=== PATIENT | male | born 1935 | race Caucasian/White ===

== ENCOUNTER → 2016-08-02 15:18 | Outpatient (CLI) | payer MEDICARE, BC ==
[2015-06-26 07:36] VITALS: BMI 32.1
[~2016-08-02 15:18] MED LIST: ASPIRIN325 MG PO; BAYER CHEWABLE81 MG PO; BENADRYL25 MG PO; CALCIUM LACTATE; CO Q-1050 MG PO; COD LIVER OIL; COZAAR100 MG PO; DULCOLAX10 MG/SUPP RC; HYDROCHLOROTH12.5 M1 PO; HYZAAR 100-12.51 TAB PO; HYZAAR 100-25 T1 TAB PO; ISOSORBIDE MONO30 M1 PO; LOVENOX40 MG/0.4 SQ; PLAVIX75 MG PO; PROTONIX40 MG PO; SALINE FLUSH10 ML INJ; ZOCOR10 MG PO
== END | disposition home or self-care (01) ==
LOC: D.MRI 15:18
DX: R51 Headache (principal)

== ENCOUNTER 2016-08-20 08:46 | Inpatient (IN) | payer MEDICARE, BC ==
[2016-08-20] VITALS (13 sets, daily range): BP systolic 85–105; BP diastolic 43–63; BMI 32.1
[~2016-08-20] VITALS: Ht 180.3 cm; Wt 104.3 kg
--- NOTE | ~2016-08-20 | OP ---
PATIENT NAME: ZAHRAA NICOLE MEDICAL RECORD: [id number] :37 LOCATION:[facility] ADMISSION DATE:08/20/16 SURGEON: LAVERN CHAUDHRY MD DATE OF OPERATION: 08/26/2016 PROCEDURE: Fiberoptic bronchoscopy. INDICATION: Mr. Nicole is a 80-year-old gentleman who has a right upper lobe, right lower lobe pneumonia. Radiologically is not getting any better, also he has persistent leukocytosis. Fiberoptic bronchoscopy was carried out to obtain specimen for culture and sensitivity, AFB and fungus as well as to inspect the airway. MONITORING: EKG, pulse, and blood pressure were monitored throughout the procedure. MEDICATIONS: Versed 2 mg IV, fentanyl 100 mcg IV in divided doses. PROCEDURE IN DETAIL: The fiberoptic bronchoscope was easily passed through the mouth. The vocal cords were normal, moving equally on phonation. The epiglottis was normal. The main trachea was normal. No endobronchial lesion was seen. The jamel was sharp. The subsegment to the right upper lobe, right lower lobe within normal. There were severe bronchitic changes. No endobronchial lesion was seen. The left main bronchus subsegment to the left upper lobe lingula, left lower lobe within normal limits. There are also some bronchitic changes of the lower lobe. Specimen washing was obtained and sent for routine culture and sensitivity, and fungus. COMPLICATIONS: None. Overall, the patient tolerated the procedure very well. TRANSINT:[id number] Voice Confirmation ID: [id number] DOCUMENT ID: [id number] LAVERN CHAUDHRY MD CC: [id number] DICTATION DATE: 08/26/161654 TERMITE EXTERMINATOR: 08/26/16 2346 ADM IN [place] [id number] [place] [address]
[2016-08-20] MEDS ORDERED: ZITHROMAX TRI-500 MG PO (10:23)
[2016-08-20 11:44] LABS: BASOPHILS 0 % (0-2); EOSINOPHILS 0 % (0-7); HEMATOCRIT 42.7 % (42.0-54.0); HEMOGLOBIN 14.4 g/dL (13.5-17.5); IMMATURE GRANULOCYTES 0.4 % (0-5); LYMPHOCYTES 3.5 % (15-50); MCH 31.1 pg (26.0-34.0); MCHC 33.7 g/dL (31.0-37.0); MCV 92.2 fL (80.0-100.0); MEAN PLATELET VOLUME 9.9 fL (7.4-10.4); MONOCYTES 7.2 % (2-11); NEUTROPHILS 88.9 % (40-80); PLATELET COUNT 200 10x3/uL (130-400); RBC 4.63 10x6/uL (4.20-6.10); RDW 13.6 % (11.5-14.5); WBC 12.1 10x3/uL (4.8-10.8)
[2016-08-20 12:13] LABS: ALBUMIN 2.6 g/dL (3.4-5.0); BILIRUBIN - TOTAL 1.36 mg/dL (0.2-1.3); CALCIUM 9.2 mg/dL (8.5-10.1); CARBON DIOXIDE 27.7 mmol/L (21.0-32.0); POTASSIUM - SERUM 3.7 mmol/L (3.5-5.1)
[2016-08-20 17:39] LABS: POTASSIUM - URINE 79.8 MMOL/L (12.0-62.0); PROTEIN - URINE 136.4 mg/dL (0.0-11.9)
[2016-08-20 17:53] LABS: CREATININE - URINE 456.9 mg/dL (30-125); PRO/CRE RATIO URINE 0.3 mg/g
[2016-08-20 18:06] LABS: APPEARANCE HAZY (CLEAR); COLOR DK YELLOW (YELLOW)
[2016-08-20 18:07] LABS: LEUKOCYTE ESTERASE TRACE (NEGATIVE); NITRITE NEGATIVE (NEGATIVE); PROTEIN TRACE mg/dL (NEGATIVE)
[2016-08-20 18:14] LABS: BACTERIA FEW /hpf (NONE SEEN); BILIRUBIN NEGATIVE (NEGATIVE); GLUCOSE NEGATIVE (NEGATIVE); KETONE NEGATIVE (NEGATIVE); RED CELLS - URINE OCC /hpf (0-5); UROBILINOGEN NORMAL (NORMAL); WHITE CELLS - URINE 0-5 /hpf (0-5)
--- NOTE | 2016-08-20 19:09 | NUR ---
1030-RECIEVED PER ADMIT- BROUGHT TO [facility]-PT ABLE TO ANSWER MOST QUESTIONS-STATES KNOWS BETTER 1050-DR HOUSE AT [facility]-STRESSED OVERFLOW ADMIT-REMAINS OFF MONITOR-NOTED NIBP 88/68-AND POINTED OUT TO DR HOUSE-N/S STARTED AT 100ML/H- 1130-PT TO XRAY VIA WHEELCHAIR-O2 AT 4L SEPTIC TANK SETTER-DR VAN MADE AWARE OF CONSULT 1200- AT [facility] [place] AND ASSISTED WITH MEAL 1210- LEFT UNIT-TELEPHONE NUMBER TAKEN 1230-DR VAN AT [facility]-GIVEN WIFES PHONE NUMBER AND REQUESTED TO CALL REGARDING STATUS-NOTED ICU ADMIT AND PLACED TO MONITOR-NIBP 92/68-HOT TO TOUCH AND TEMP 98.8-SPOKE WITH REGARDING NEED FOR ADDITIONAL IV ACCESS AND TO REMAIN IN UNIT FOR ADDITIONAL MONITORING-CONSENT OBTAINED-FOR PICC LINE PLACEMENT-KBRN 1530-DR SUH AT [facility]-STATUS REPORT GIVEN AND SPOKE WITH VIA TELEPHONE 0170-ASSISTED TO [facility] COMMODE-
--- NOTE | 2016-08-20 19:30 | NUR ---
Assessment complete. See flowsheet. Pt awake with O2 cannula off and replaced. O2 @ 4L NC. SPO2 monitor placed on pt and reading 98%. Pt with strong, nonproductive cough at this time. Lung sounds present crackles to RUL RML and clear to LIAM with diminished lower lobes. HR SR with S1S2 auscultated. All peripheral pulses +2 with capillary refill <3 seconds. Left upper arm PICC line site CDI with NS infusing @ 100cc/hr. Abdomen soft, non-tender and non-distended with BS present to all quadrants. Urinal within pt reach. Pt self-positioning in bed for assessment and to left side after assessment for resting. NO neuro deficits noted. Pt moving all extremities equal and strong. Alert/oriented x4 and following all conversation. Pupils size 3 bilaterally ERRLA. Pt denies pain at this time. Temp 98.7F orally. Fresh ice water and extra pillow provided per pt request. Rapport established. Call light and beside table placed within pt reach. Pt denies further needs at this time. CPOC.
--- NOTE | 2016-08-20 21:30 | NUR ---
Pt awake and voiding to urinal 150cc concentrated, josue urine. Urinal emptied and cleansed. Pt remains calm/cooperative and conversational. VSS. Room cooled per request. NO other changes to note. CPOC.
--- NOTE | 2016-08-20 23:30 | NUR ---
Whitakers provided per pt request. VSS. Urinal emptied of 225cc concentrated, josue urine. Pt denies further needs and continues to self-position for comfort. Call light and bedside table remain within reach. CPOC.
[2016-08-21] VITALS (23 sets, daily range): BP systolic 84–128; BP diastolic 45–83; Ht 180.3 cm; Wt 104.3 kg
--- NOTE | 2016-08-21 01:30 | NUR ---
Pt self-positioned to right side and resting quietly with VSS. NO s/s pain or distress. Call light and bedside table remain within reach. CPOC.
--- NOTE | 2016-08-21 03:30 | NUR ---
300CC emptied from urinal. No changes to note. Pt denies further needs at this time. Call light and bedside table remain within reach. VSS. CPOC.
[2016-08-21 04:41] LABS: BASOPHILS 0.1 % (0-2); EOSINOPHILS 0.6 % (0-7); HEMATOCRIT 37.1 % (42.0-54.0); HEMOGLOBIN 12.3 g/dL (13.5-17.5); IMMATURE GRANULOCYTES 1.2 % (0-5); LYMPHOCYTES 4.6 % (15-50); MCH 30.4 pg (26.0-34.0); MCHC 33.2 g/dL (31.0-37.0); MCV 91.6 fL (80.0-100.0); MONOCYTES 7.7 % (2-11); NEUTROPHILS 85.8 % (40-80); PLATELET COUNT 184 10x3/uL (130-400); RBC 4.05 10x6/uL (4.20-6.10); RDW 13.5 % (11.5-14.5)
[2016-08-21 05:30] LABS: ALKALINE PHOSPHATASE 66 U/L (46-116); ALT (SGPT) 26 U/L (10-68); BILIRUBIN - TOTAL 0.77 mg/dL (0.2-1.3); CALC OSMOLALITY 286 mosm/kg (275-300); CALCIUM 7.7 mg/dL (8.5-10.1); CARBON DIOXIDE 25.4 mmol/L (21.0-32.0); CHLORIDE - SERUM 102 mmol/L (98-107); CREATINE KINASE 244 UL (21-232); GLUCOSE 125 mg/dL (74-106); MAGNESIUM - SERUM 1.7 mg/dL (1.8-2.4); PHOSPHOROUS 2.7 mg/dL (2.5-4.9); POTASSIUM - SERUM 3.4 mmol/L (3.5-5.1); PRO BNP 1119 pg/mL (0-450); PROTEIN - SERUM 5.8 g/dL (6.4-8.2); SODIUM 136 mmol/L (136-145); UREA NITROGEN 53 mg/dL (7-18)
--- NOTE | 2016-08-21 05:30 | NUR ---
Pt resting with VSS
[2016-08-21 05:34] LABS: ALBUMIN 1.9 g/dL (3.4-5.0); CREATININE - SERUM 2.1 mg/dL (0.6-1.3); TROPONIN-I < 0.017 ng/mL (0.000-0.060); eGFR NON AFRICAN AMERICAN 32 mL/min (90-120)
[2016-08-21 05:35] LABS: CKMB 3.8 U/L (0.0-3.6)
--- NOTE | 2016-08-21 06:09 | NUR ---
Pt awake and urinal emptied of 300cc concentrated, josue urine. Pt c/o pain to right side with coughing rated 4 out of 10. Pain medication provided per pt request. See MAR. Fresh ice water provided. Pt helped to reposition for comfort. Call light and bedside table within pt reach. VSS. CPOC.
--- NOTE | 2016-08-21 17:48 | NUR ---
0700-RECIEVED AWAKE AND ALERT-READING NEWSPAPER-ABLE TO CONVERSE EASILY AND STATES FEELING BETTER-ABLE TO STATED FAMILY EVENTS AND EVENTS THAT BROUGHT TO HOSPITAL-PRODUCTIVE COUGH-COOPERATIVE IN INCENTIVE SPIROMETRY 0930-BREAKFEST TRAY TAKEN-DR HOUSE IN UNIT AND SPOKE WITH 1000-DR VAN IN UNIT-PT ABLE TO ANSWER QUESTIONS CORRECTLY 1430-FOUND OXYGEN OFF PT [id number] INCREASED CONFUSION-STATED HALLUCINATIONS-REPLACED O2- AND TAPED TUBING TO SKIN TO PREVENT ACCIDENTAL DISLODGEMENT-PT STATED DIDN'T REALIZE HE TOOK OFF-ENCOURAGED [id number] AND DAUGHTER AT BEDSDIE-AGITATION NOTED FROM PT-O2 IN PLACE-ABLE TO CONVERSE AND STATE FAMILY CURRENT EVENTS-ABLE TO STATE NURSE'S NAME PART OF CONVERSATION-STATED BURNING SENSATION ON TOP OF HEAD-NO SKIN OR SCALP ABNORMALITIES NOTED 1650-PT CALLED NURSE -CRYING STATED-THESE HALLUCINATIONS ARE TERRIBLE WHEN I CLOSE MY EYES-NOTIFIED DR HOUSE OF SAME AND BURNING SCALP SENSATION-ORDER RECIEVD FOR PO HALDOL AND POSSIBLE ICU PSYCHOSIS - CALLED AND NOTIFIED OF SITUATION -AGREED TO SIT WITH PT-AND INFORMED OF TREATMENT PLAN
--- NOTE | 2016-08-21 19:30 | NUR ---
Pt awake with leaving bedside for night. Pt gown wet and pt self-positioned to left side and c/o discomfort. Pt helped to sit at bedside. Gown removed. Bed bath with gown change completed. Pt respirations unlabored. VSS. Pt helped to feet to ambulate around unit x2 circles and tolerated well after linen change. Powder applied to armpits and back per request after returning to room. Pt helped to bedside toilet to pass gas; no stool with 100cc concentrated urine produced to bedside toilet and urinal emptied of 300cc concentrated, yellow urine. Pt back to bed after self pericare and toileting. Pt positioned for comfort with arms and heels bridged. SCDs off for now per pt request for break. New BP cuff positioned to right arm. Pt alert, oriented x4 and denies confusion. Pt following all conversation and commands with no neuro deficits noted. 4/5 strength to all extremities with no edema noted. O2 @ 4L NC. SPO2 96%. Lung sounds clear to LIAM with rattle noted to RUL RML RLL and diminished lower lobes. Pt cough productive with thick, brown sputum noted. HR SR with S1S2 auscultated. All peripheral pulses +2 with capillary refill <3 seconds. Left upper arm PICC line site CDI with NS infusing @ 100cc/hr. BS present to all quadrants. Pt coughing with sips of water. [place] thickened water provided. Enzo crackers and peanut butter with chocolate pudding and vanilla ice cream provided for snack. Pt denies pain at this time. Temp 98.6F orally before oral intake. Pt denies further needs at this time. Call light and bedside table placed within pt reach. CPOC.
--- NOTE | 2016-08-21 21:01 | NUR ---
Pt helped back to bedside toilet for BM attempt. PM meds provided. See MAR.
--- NOTE | 2016-08-21 21:30 | NUR ---
IVF rate increased to 150ml/hr per order. See MAR.
--- NOTE | 2016-08-21 23:30 | NUR ---
Reassessment complete. See flowsheet. Pt helped to position to right side with minimal assistance. NO neuro changes to note. O2 @ 4L NC. SPO2 96%. Lung sounds present crackles to all landry with diminished lower lobes. Pt cough strong and productive with thick, barker sputum produced. HR SR. S1S2 auscultated. All peripheral pulses +2 with capillary refill <3 seconds. PICC line site CDI; no s/s infection with NS infusing @ 150cc/hr. BS +. Urinal emptied of 200cc concentrated, yellow urine. Pt denies pain or further needs at this time. Call light and bedside table remain within pt reach. CPOC.
[2016-08-22] VITALS (24 sets, daily range): BP systolic 96–172; BP diastolic 48–104
--- NOTE | 2016-08-22 00:26 | NUR ---
Pt helped to bedside toilet for BM attempt with no stool produced. Pt helped back to bed to position to right side for comfort. Call light and bedside table within pt reach. Pt denies further needs at this time. CPOC.
--- NOTE | 2016-08-22 01:30 | NUR ---
Pt awake and coughing. Pt provided with fresh ice water per request and self-positions to left side.
--- NOTE | 2016-08-22 02:05 | NUR ---
Pt helped up to bedside toilet per request.
--- NOTE | 2016-08-22 03:30 | NUR ---
Pt helped up to bedside toilet for void and soft, brown BM approx 400cc. Pericare self-completed. NO other changes to note. Pt ambulates with minimal assistance back to bed and self-positions to left side for comfort. Call light and bedside table within pt reach.
[2016-08-22 03:45] LABS: BASOPHILS 0.1 % (0-2); EOSINOPHILS 0.2 % (0-7); HEMATOCRIT 36.8 % (42.0-54.0); HEMOGLOBIN 12.4 g/dL (13.5-17.5); IMMATURE GRANULOCYTES 2.3 % (0-5); LYMPHOCYTES 2.8 % (15-50); MCH 30.5 pg (26.0-34.0); MCHC 33.7 g/dL (31.0-37.0); MCV 90.6 fL (80.0-100.0); MEAN PLATELET VOLUME 9.7 fL (7.4-10.4); MONOCYTES 8.4 % (2-11); NEUTROPHILS 86.2 % (40-80); PLATELET COUNT 177 10x3/uL (130-400); RBC 4.06 10x6/uL (4.20-6.10); RDW 13.5 % (11.5-14.5); WBC 16.4 10x3/uL (4.8-10.8)
[2016-08-22 04:16] LABS: ALBUMIN 1.9 g/dL (3.4-5.0); ANION GAP 11.7 mmol/L (8-16); BILIRUBIN - TOTAL 0.6 mg/dL (0.2-1.3); CARBON DIOXIDE 24.8 mmol/L (21.0-32.0); PHOSPHOROUS 2.2 mg/dL (2.5-4.9); POTASSIUM - SERUM 3.5 mmol/L (3.5-5.1)
--- NOTE | 2016-08-22 04:16 | NUR ---
Pt back to bedside toilet per request.
[2016-08-22 04:17] LABS: CREATININE - SERUM 1.5 mg/dL (0.6-1.3)
[2016-08-22 04:26] LABS: % SATURATION 12 % (15-55); IRON 18 ug/dl (35-150); TOTAL IRON BIND CAPACITY 140 ug/dl (260-445); UNSAT IRON BIND CAPACITY 122 ug/dl (150-375)
--- NOTE | 2016-08-22 04:29 | NUR ---
Small void, no stool. Pt helped to bedside chair to rest and helped to position for comfort.
[2016-08-22 04:34] LABS: C-REACTIVE PROTEIN 29.3 mg/dL (0.0-0.9)
--- NOTE | 2016-08-22 05:05 | NUR ---
Pt helped to bedside toilet.
--- NOTE | 2016-08-22 06:27 | NUR ---
Pt provided with fresh water and urinal emptied of 250cc yellow, concentrated urine. Pt remains up to bedside chair. VSS. Pain denied.
--- NOTE | 2016-08-22 18:28 | NUR ---
CONSULT CALLED TO DR MCKENZIE-VIMAL RECIVED AND NOTED
--- NOTE | 2016-08-22 19:40 | NUR ---
Assessment complete. See flowsheet. Pt awake and helped to bedside chair with minimal assistance. No neuro deficits noted. Pt states that he is feeling better than last night. O2 @ 4L NC. SPO2 96%. Lung sounds present fine crackles to all landry. Cough strong and non-productive at this time. HR SR with S1S2 auscultated. All peripheral pulses +2 with capillary refill <3 seconds. Left upper arm PICC line site CDI no s/s infection with NS @ 150cc/hr. Abdomen distended and dull to percussion with BS present to all quadrants. Pt urinal emptied of 100cc concentrated, yellow urine. Pt sitting up in bedside chair and comfortable with fresh ice water provided. Pt denies further needs at this time. VSS. Call light and bedside table placed within pt reach. Temp 98.2F. CPOC.
--- NOTE | 2016-08-22 23:00 | NUR ---
Pt awake and voiding into trash can. Pt confused and helped back to bed. O2 replaced. IV tubings resecured and BP cuff resecured. Pt helped to reposition to left side. Bed alarm on
--- NOTE | 2016-08-22 23:11 | NUR ---
Pt attempting to get OOB again and helped to relax
--- NOTE | 2016-08-22 23:24 | NUR ---
Pt oriented to person only and confused. Haldol 5mg PO administered for hallucinations.
[2016-08-23] VITALS (13 sets, daily range): BP systolic 106–161; BP diastolic 53–96
--- NOTE | 2016-08-23 01:40 | NUR ---
Pt getting OOB and helped to bedside chair after void 175cc. Pt helped to position for comfort.
--- NOTE | 2016-08-23 03:40 | NUR ---
Pt resting in bedside chair with VSS> NO s/s pain or distress and allowed to continue resting undisturbed. CXR deferred to later this AM. Call light and bedside table remain within pt reach. CPOC.
--- NOTE | 2016-08-23 04:20 | NUR ---
Pt awake and watching telvision with VSS. Pt states that he feels better and is currently oriented x4.
[2016-08-23 04:28] LABS: BASOPHILS 0.1 % (0-2); EOSINOPHILS 0.8 % (0-7); HEMATOCRIT 37.5 % (42.0-54.0); HEMOGLOBIN 12.7 g/dL (13.5-17.5); IMMATURE GRANULOCYTES 2.3 % (0-5); LYMPHOCYTES 9.8 % (15-50); MCH 30.6 pg (26.0-34.0); MCHC 33.9 g/dL (31.0-37.0); MCV 90.4 fL (80.0-100.0); MEAN PLATELET VOLUME 9.8 fL (7.4-10.4); MONOCYTES 5.7 % (2-11); NEUTROPHILS 81.3 % (40-80); PLATELET COUNT 188 10x3/uL (130-400); RBC 4.15 10x6/uL (4.20-6.10); RDW 13.5 % (11.5-14.5)
[2016-08-23 04:39] LABS: ANION GAP 11.2 mmol/L (8-16); CALCIUM 8.1 mg/dL (8.5-10.1); CARBON DIOXIDE 26.6 mmol/L (21.0-32.0); CREATININE - SERUM 1.2 mg/dL (0.6-1.3); MAGNESIUM - SERUM 2.2 mg/dL (1.8-2.4); PHOSPHOROUS 2.1 mg/dL (2.5-4.9); POTASSIUM - SERUM 3.8 mmol/L (3.5-5.1)
--- NOTE | 2016-08-23 05:21 | NUR ---
Pt resting in chair with VSS. Call light and bedside table remain within pt reach. CPOC.
--- NOTE | 2016-08-23 07:00 | NUR ---
PT AAOX4. DENIES PAIN AT THIS TIME. STATES THAT HE IS FEELING MUCH BETTER TODAY. VITAL SIGNS STABLE. SHIFT ASSESSMENT COMPLETED PER FLOWSHEET. NO SIGNS OF DISTRESS NOTED AT THIS TIME. WILL CONTINUE TO MONTIOR
--- NOTE | 2016-08-23 09:00 | NUR ---
PT SITTING UP IN CHAIR EATING BREAKFAST INDEPENDENTLY. NO CHANGES FROM PREVIOUS NOTE. WILL CONTINUE TO MONITOR
--- NOTE | 2016-08-23 11:00 | NUR ---
HELPED PT BACK TO BED. ABLE TO AMBULATE WITH MINIMAL ASSISTANCE. WEAKNESS AND SOB NOTED UPON STANDING. VITAL SIGNS STABLE. WILL CONTINUE TO MONITOR
--- NOTE | 2016-08-23 11:05 | NUR ---
Nutrition Follow Up: Pt is eating 53% meal avg on a regular diet. He is receiving Ensure with meals. I>O. +BM 08/22/16. Wt stable. Labs reviewed. Meds noted. Rec continue current diet. If glucose continues elevated may need to change diet to diabetic. RD will continue to monitor pt progress.
--- NOTE | 2016-08-23 13:00 | NUR ---
TRANSFER ORDERS IN ON PT. WILL CONTINUE TO MONITOR FOR CHANGE IN STATUS. VITAL SIGNS STABLE.
--- NOTE | 2016-08-23 17:15 | NUR ---
PT TRANSFER TO MED/SURG VIA WHEELCHAIR WITH BELONGINGS. ON 4L NC AND BREATHING STABLE. REPORT CALLED TO [facility]. PT SET UP IN BED WITH CALL LIGHT WITHIN REACH.
[2016-08-24] VITALS: BP 159/79
--- NOTE | 2016-08-24 00:10 | NUR ---
193)REC'D SITTING ON SIDE OF BED.'STATES FEELS LIKE I HAVE A FEVER TEMP. 99.9.TYLENOL 650MG GIVEN PER PT. REQUEST. 02 4L AL.WILL CONTINUE TO MONITOR FOR ANY CHGES. IN RESP. STATUS AND FOLLOW CURRENT PLAN OF CARE.
[2016-08-24 04:00] VITALS: BP 143/73
[2016-08-24 06:44] LABS: ANION GAP 10.7 mmol/L (8-16); CALCIUM 7.8 mg/dL (8.5-10.1); CARBON DIOXIDE 25.9 mmol/L (21.0-32.0); CREATININE - SERUM 1.1 mg/dL (0.6-1.3); PHOSPHOROUS 1.9 mg/dL (2.5-4.9); POTASSIUM - SERUM 3.6 mmol/L (3.5-5.1)
[2016-08-24 08:16] VITALS: BP 169/81
[2016-08-24 08:19] LABS: BASOPHILS 0.2 % (0-2); HEMATOCRIT 34.9 % (42.0-54.0); HEMOGLOBIN 11.7 g/dL (13.5-17.5); IMMATURE GRANULOCYTES 4.6 % (0-5); LYMPHOCYTES 4.8 % (15-50); MCH 30.4 pg (26.0-34.0); MCHC 33.5 g/dL (31.0-37.0); MCV 90.6 fL (80.0-100.0); MEAN PLATELET VOLUME 10.3 fL (7.4-10.4); MONOCYTES 11.6 % (2-11); NEUTROPHILS 77.8 % (40-80); PLATELET COUNT 199 10x3/uL (130-400); RBC 3.85 10x6/uL (4.20-6.10); RDW 13.9 % (11.5-14.5); WBC 13.2 10x3/uL (4.8-10.8)
[2016-08-24 11:48] VITALS: BP 128/62
--- NOTE | 2016-08-24 12:56 | NUR ---
Patient Name: ZAHRAA HERNANDEZ Admission Status: Elective Accout number: [id number] Admission Date: 08-20-2016 : 1937 Admission Diagnosis: Attending: HARSH Current LOS: 4 Anticipated DC Date: 08-27-2016 Planned Disposition: Home with Home Health Primary Insurance: MEDICARE A & B Discharge Planning Comments: CM MET WITH PATIENT REGARDING DISCHARGE NEEDS AND PLANS. PATIENT STATED HE LIVES WITH HIS SPOUSE (QI) AND SHE WILL DRIVE HIM HOME AT DISCHARGE. PATIENT STATED HE IS INDEPENDENT WITH HIS CARE AND HAS A WALKER AT HOME IF NEEDED. PATIENTS PCP IS DR. VELÁSQUEZ AND [facility] [address] [facility] HER [address]AC[address]. PATIENT HAS SIGNED THE LAYLA FORM WITH [employer] IF NEEDED AT DISCHARGE. CM WILL CONTINUE TO FOLLOW PATIENT WITH D/C NEEDS AND PLANS. [facility] DR[facility]. [address] [phone] QI () [phone] Field Identification Specialist: Roxana Dumas Is the patient Alert and Oriented? Yes 0 * How many steps to enter\exit or inside your home? 0 0 * PCP DR. VELÁSQUEZ 0 * [facility] [address] 0 * Preadmission Environment Home with Family 0 * ADLs Independent 0 * Equipment Walker 0 * List name and contact numbers for known caregivers / representatives who currently or will assist patient after discharge: QI () [phone] 0 * Community resources currently utilized None 0 * Additional services required to return to the preadmission environment? Yes 0 * Can the patient safely return to the preadmission environment? Yes 0 * Has this patient been hospitalized within the prior 30 days at any hospital? No 0 Grand Total: 0
--- NOTE | 2016-08-24 14:41 | NUR ---
NUTRITION MONITORING & EVAL CHART REVIEWED, PT VISIT. TOLERATING REG DIET. ~50% INTAKE RECENT MEALS. WILL CONTINUE TO PROVIDE DIET, HONOR FOOD PREFERENCES. RD FOLLOWING
[2016-08-24 15:20] VITALS: BP 162/83
[2016-08-24 19:00] VITALS: BP 127/57
--- NOTE | 2016-08-25 02:00 | NUR ---
PT IN BED WITH NO DISTRESS. RESPIRATIONS ARE EVEN AND UNLABORED. SIDE RAILS ARE UP X 2. BED IS IN LOWEST POSITION. CALL LIGHT IS WITHIN REACH.
[2016-08-25 04:00] VITALS: BP 138/54
[2016-08-25 04:36] LABS: ANION GAP 9.6 mmol/L (8-16); CALCIUM 7.7 mg/dL (8.5-10.1); CARBON DIOXIDE 26.3 mmol/L (21.0-32.0); CREATININE - SERUM 1.1 mg/dL (0.6-1.3); POTASSIUM - SERUM 3.9 mmol/L (3.5-5.1)
[2016-08-25 04:37] LABS: PHOSPHOROUS 2.4 mg/dL (2.5-4.9)
[2016-08-25 05:26] LABS: BASOPHILS 0.2 % (0-2); EOSINOPHILS 3.4 % (0-7); HEMATOCRIT 38.6 % (42.0-54.0); HEMOGLOBIN 13.2 g/dL (13.5-17.5); LYMPHOCYTES 8.8 % (15-50); MCH 30.8 pg (26.0-34.0); MCHC 34.2 g/dL (31.0-37.0); MEAN PLATELET VOLUME 9.6 fL (7.4-10.4); MONOCYTES 5.1 % (2-11); NEUTROPHILS 76.5 % (40-80); RBC 4.29 10x6/uL (4.20-6.10); RDW 13.8 % (11.5-14.5); WBC 16.1 10x3/uL (4.8-10.8)
[2016-08-25 05:35] LABS: PLATELET COUNT 246 10x3/uL (130-400)
[2016-08-25 07:55] VITALS: BP 171/85
--- NOTE | 2016-08-25 07:57 | NUR ---
AWAKE AND ALERT. ORIENTED X3. NO C/O AT THIS TIEM. LUNGS HAVE WHEEZES THROUGHOUT LUNG SHAY, DENIES PRODUCTIVE COUGH. SKIN IS INTACT WITHOUT REDNESS. PICC TO LEFT UPPER ARM IS PATENT WITHOUT REDNESS AT INSERTION SITE. DENIES NEEDS.
--- NOTE | 2016-08-25 10:23 | NUR ---
UP TO BR WITH 'S ASSISTANCE. VOIDED CLEAR YELLLOW URINE WITHOUT DIFFICULTY. REPOSITIONED IN BED FOR COMFORT.
[2016-08-25 11:17] VITALS: BP 124/60
--- NOTE | 2016-08-25 12:37 | NUR ---
NASAL SWAB COMPLETED AND URINE COLLECTED AND SENT TO LAB.
[2016-08-25 14:55] VITALS: BP 122/62
--- NOTE | 2016-08-25 16:30 | NUR ---
DRESSING TO LEFT PICC CHANGED USING STERILE TECHNIQUE. PATIENT TOLERATED WITHOUT C/O PAIN OR DISCOMFORT.
--- NOTE | 2016-08-25 18:24 | NUR ---
REFUSED SUPPER TRAY. DENIES NEEDS. NO CHANGES NOTED.
[2016-08-25 19:00] VITALS: BP 142/79
--- NOTE | 2016-08-25 22:41 | NUR ---
REC'D PATIENT LYING IN BED DOING A BREATHING TREATMENT. ALERT AND ORIENTED X4. DENIED PAIN AT THIS TIME. WILL ADMINISTER PM MEDS PRESCIRBED. WHEN I WENT TO ADMINISTER MEDS THE SCANNER IN HIS ROOM WAS NOT WORKING SO I HAD TO PUT THE MEDS IN MANUALLY. WILL CONT TO TRY THROUGHOUT THE NIGHT AND WILL REPORT THAT IN THE MORNING. INSTRUCTED TO CALL IF NEEDED ANYTHING. VERBALIZED UNDERSTANDING. BED LOW, LOCKED, CALL LIGHT IN REACH.
[2016-08-26] VITALS (15 sets, daily range): BP systolic 116–164; BP diastolic 61–78
--- NOTE | 2016-08-26 02:46 | NUR ---
PATIENT RESTING IN BED WITH EYES CLOSED AND NO VISIBLE SIGNS OF DISTRESS. BED IN LOWEST POSITION AND CALL LIGHT WITHIN REACH.
[2016-08-26 05:40] LABS: BASOPHILS 0.2 % (0-2); HEMATOCRIT 36.7 % (42.0-54.0); HEMOGLOBIN 12.2 g/dL (13.5-17.5); IMMATURE GRANULOCYTES 5.4 % (0-5); LYMPHOCYTES 4.4 % (15-50); MCH 30.2 pg (26.0-34.0); MCHC 33.2 g/dL (31.0-37.0); MCV 90.8 fL (80.0-100.0); MEAN PLATELET VOLUME 9.8 fL (7.4-10.4); MONOCYTES 9.1 % (2-11); NEUTROPHILS 73.9 % (40-80); PLATELET COUNT 276 10x3/uL (130-400); RBC 4.04 10x6/uL (4.20-6.10); RDW 14.1 % (11.5-14.5); WBC 14.6 10x3/uL (4.8-10.8)
[2016-08-26 05:49] LABS: CALC OSMOLALITY 279 mosm/kg (275-300); CALCIUM 7.8 mg/dL (8.5-10.1); CARBON DIOXIDE 25.8 mmol/L (21.0-32.0); CHLORIDE - SERUM 107 mmol/L (98-107); GLUCOSE 114 mg/dL (74-106); MAGNESIUM - SERUM 1.7 mg/dL (1.8-2.4); PHOSPHOROUS 2.2 mg/dL (2.5-4.9); POTASSIUM - SERUM 3.6 mmol/L (3.5-5.1); SODIUM 140 mmol/L (136-145); UREA NITROGEN 12 mg/dL (7-18); eGFR NON AFRICAN AMERICAN 77 mL/min (90-120)
--- NOTE | 2016-08-26 07:46 | NUR ---
AWAKE AND ALERT. ASSISTED UP TO BR WITH MIN ASSIST OF ONE. HAD GOOD BM. SKIN CARE PER SELF. LUNGS ARE DIMINISHED THROUGHOUT LUNG SHAY WITH FAINT CRACKLES NOTED TO RIGHT LOBES. OCCASSIONAL DRY COUGH NOTED. SKIN IS INTACT WITHOUT REDNESS. PICC TO LEFT UPPER ARM IS PATENT WITHOUT REDNESS AT INSERTION SITE. DENIES NEEDS.
--- NOTE | 2016-08-26 10:14 | NUR ---
DR CHAUDHRY CALLED AND SAID TO MAKE PATIENT NPO FOR NOW. DISCUSSED WITH PATIENT AND .
--- NOTE | 2016-08-26 12:00 | NUR ---
UP TO BR WITH ONE PERSON SBA. HAD SMALL BM. REPOSITIONED IN BED FOR COMFORT.
--- NOTE | 2016-08-26 16:00 | NUR ---
PT PREOPPED FOR BRONCHOSCOPY WITH DR CHAUDHRY AT TH IS TIME CALL PLACED TO DR CHAUDHRY PT STATES HALLUCINOGENIC REACTION TO MORPHINE HELD PER ORDER DR CHAUDHRY NOT GIVEN FOR PREOP MED.
--- NOTE | 2016-08-26 17:25 | NUR ---
REC'D TO ROOM CV07 FROM 2237 ON 15L NONREBREATHER. SATTING 95%. RR 29 EVEN AND LABORED. HR 87. BP 164/76. LATHARGIC BUT DOES ANSWER QUESTIONS APPROPRIATLY. A&O X3. LEFT UPPER ARM PICC LINE. PPP. CHRISTIE. FOLLOWS COMMANDS. LUNGS CTA. BS +X4 QUADS.SEE FLOW SHEET FOR ADDITIONAL ASSESSMENT.
--- NOTE | 2016-08-26 17:35 | NUR ---
ALLOWED BACK TO SEE MR. HERNANDEZ.
--- NOTE | 2016-08-26 17:45 | NUR ---
NOTIFIED AT THIS TIME PT TO CVICU AFTER BRONCHOSCOPY PT WAS UNABLE TO MAINTAIN O2 SAT AFTER PROCEEDURE
--- NOTE | 2016-08-26 17:52 | NUR ---
BP 143/75. HR 80 NS.
--- NOTE | 2016-08-26 17:54 | NUR ---
IVF STARTED BACK AT [facility].
--- NOTE | 2016-08-26 18:14 | NUR ---
RESTING WITH EYES CLOSED. RESPONSE TO VERBAL STIMULI. RR 22, EVEN AND LESS LABORED. REMIANS ON 15L NONREBREATHER. SATTING 95%. DROWSY BUT ORIENTED X3.VSS. CPOC.CLWR.
--- NOTE | 2016-08-26 18:43 | NUR ---
REPOSITIONED FOR COMFORT AND TO PRESERVE SKIN INTEGRITY. TURNED ON LEFT SIDE. PLACED PILLOW BEHIND HIM AND BETWEEN LEGS.
--- NOTE | 2016-08-26 19:10 | NUR ---
SHIFT ASSESSMENT COMPLETE, SEE FOR DETIALS. PATIENT ALERT AND ORIENTED, ON NON-REBREATHER AT 15L. O2 SAT IS 96%, RR EVEN AND LABORED WIT A RATE OF 36. DENIES ANY PAIN AT THIS TIME. LUNG SOUNDS ARE DIMINISHED BUT CLEAR. ABDOMEN OBESE AND SOFT, NONTENDER TO TOUCH. PATIENT URINATES IN BEDSIDE URINAL. PERIPHERAL PULSES +2, BILATERAL. WILL CONTINUE TO MONITOR.
--- NOTE | 2016-08-26 20:15 | NUR ---
DR CHAUDHRY PAGEWilliam FOR LABORED BREATHING AND TACHYAPNEA. ORDERS RECEIVED, WILL MONITOR. PLACED ON 15L OXYMIZER PER RT.
--- NOTE | 2016-08-26 20:30 | NUR ---
RESPERATIONS ARE SLOWER AND NOT IS LABORED. PATIENT STATES FEELING BETTER NOW. WILL MONITOR PATIENT.
--- NOTE | 2016-08-26 21:15 | NUR ---
PATIENT RESTING WITH EYES CLOSED, RR 21 AT THIS TIME WITH O2 GREATER THAN 92%.
--- NOTE | 2016-08-26 23:10 | NUR ---
REASSESSMENT COMPLETE, PATIENT RESTING WITH EYES CLOSED UPON ENTERING THE ROOM. VSS. RR EVEN, PATIENT STILL HAVING SOME SHORTNESS OF BREATH, BUT MUCH BETTER. DENIES PAIN OR DISCOMFORT. S1S2 WITH NSR ON MONITOR. PERIPHERAL PULSES +2, NS GOING @ KVO TO GIACOMO PICC LINE. SEE REASSESSMENT FLOWSHEET FOR MORE DETAILS.
[2016-08-27] VITALS (26 sets, daily range): BP systolic 125–166; BP diastolic 54–88
--- NOTE | 2016-08-27 | NUR ---
PATIENT PLACED ON BEDPAN, HAD SMALL FORMED BM. PATIENT WAS SOB AND A LITTLE TACHYCARDIC DUE TO ACTIVITY INTOLERANCE, OTHERWISE TOLERATED WELL. VSS.
--- NOTE | 2016-08-27 01:00 | NUR ---
PATIENT RESTING WITH EYES CLOSED, VSS.
--- NOTE | 2016-08-27 03:00 | NUR ---
REASSESSMENT COMPLETE, SEE FLOWSHEET FOR DETAILS. RR HAVE CALMED AND SOB HAS DECREASED THROUGHOUT THE NIGHT. PATIENT STATES FEELIMG MUCH BETTER.
--- NOTE | 2016-08-27 05:15 | NUR ---
PATIENT UP TO BEDSIDE COMMODE, HAD MEDIUM SOFT BOWEL MOVEMENT. TOLERATED GETTING UP AND DOWN OKAY. BECAME SHORT OF BREATH BUT REGAINED IT AFTER RESTING FOR A MINUTE. VSS.
[2016-08-27 05:19] LABS: BASOPHILS 0.1 % (0-2); EOSINOPHILS 2.7 % (0-7); HEMATOCRIT 35.8 % (42.0-54.0); HEMOGLOBIN 11.9 g/dL (13.5-17.5); IMMATURE GRANULOCYTES 1.4 % (0-5); LYMPHOCYTES 2.8 % (15-50); MCH 30.5 pg (26.0-34.0); MCHC 33.2 g/dL (31.0-37.0); MCV 91.8 fL (80.0-100.0); MEAN PLATELET VOLUME 9.5 fL (7.4-10.4); MONOCYTES 4.9 % (2-11); NEUTROPHILS 88.1 % (40-80); PLATELET COUNT 264 10x3/uL (130-400); RDW 14.5 % (11.5-14.5); WBC 21.2 10x3/uL (4.8-10.8)
[2016-08-27 05:27] LABS: CALC OSMOLALITY 279 mosm/kg (275-300); CALCIUM 7.7 mg/dL (8.5-10.1); CARBON DIOXIDE 29.3 mmol/L (21.0-32.0); CHLORIDE - SERUM 106 mmol/L (98-107); GLUCOSE 140 mg/dL (74-106); MAGNESIUM - SERUM 1.6 mg/dL (1.8-2.4); PHOSPHOROUS 2.4 mg/dL (2.5-4.9); POTASSIUM - SERUM 3.6 mmol/L (3.5-5.1); SODIUM 140 mmol/L (136-145); UREA NITROGEN 11 mg/dL (7-18); eGFR NON AFRICAN AMERICAN 77 mL/min (90-120)
--- NOTE | 2016-08-27 07:15 | NUR ---
REC'D REPORT AND RESUMED CARE, AAO, VSS, O2 VIA OXYMIZER AT 9L, SAT 96%, OTHER VSS, DENIES PAIN, SITTING UP AT BEDSIDE, DYSPNEA NOTED FROM GETTING UP LEFT UPPER ARM PICC IN PLACE, NS AT KVO, URINAL IN USE, 105 CC, DARK YELLOW DRAINAGE, SCD'S B/L, ASSESSMENT COMPLETE PER FLOWSHEET, TRANSFERRED TO CHAIR WITHOUT DIFFICULTY, WILL CONTINUE WITH POC
--- NOTE | 2016-08-27 07:50 | NUR ---
BREAKFAST TRAY TO BEDSIDE, OOB TO CHAIR WITH ASSIST, INDEPENDENT WITH SET UP AND EATING
--- NOTE | 2016-08-27 09:00 | NUR ---
AT BEDSIDE, STATUS UPDATED., AWAITNG TO SPEAK WITH 'S RE: POC
--- NOTE | 2016-08-27 10:05 | NUR ---
OUT OF CHAIR TO BEDSIDE COMMOODE, DYSPNEA ON EXERTION
--- NOTE | 2016-08-27 10:19 | NUR ---
DR CHAUDHRY HERE FOR EVAL, NEW ORDER GIVEN, PC TO QI, DISCUSSED STATUS AND POC
--- NOTE | 2016-08-27 10:20 | NUR ---
NUTRIITON MONITORING & EVAL CHART REVIEWED. NURSING REPORTS PT WITH GOOD PO INTAKE BREAKFAST. ENSURE AT BEDSIDE. RD FOLLOWING
--- NOTE | 2016-08-27 10:43 | NUR ---
RT AT BEDSIDE FOR UPDRAFT AND TX
--- NOTE | 2016-08-27 11:01 | NUR ---
CONTINUES TO SIT UP IN CHAIR, VSS, STATES FEELS BETTER, NO ACUTE CHANGE FROM PREVIOUS ASSESSMENT
[2016-08-27 11:48] LABS: ERYTHROCYTE SEDIMENTATION RATE 55 mm/hr (0-20)
--- NOTE | 2016-08-27 12:05 | NUR ---
LINEN CHANGE COMPLETED, PATIENT CONTNIUES TO SIT UP IN CHAIR, SLEEPING AROUSABLE TO VERBAL STIMULI, DENIES PAIN, NO ACUTE CHANGE FROM PREVIOUS ASSESSMENT
--- NOTE | 2016-08-27 13:00 | NUR ---
BTB WITH ASSIST, REPOSITIONED TO LEFT SIDE WITH PILLOW PROPPED TO BACK AND HEELS FLOATED
--- NOTE | 2016-08-27 13:52 | NUR ---
OOB TO BEDSIDE COMMODE WITH STANDBY ASSIST, 150 CC TO URINAL AT THIS TME
--- NOTE | 2016-08-27 14:03 | NUR ---
TRANSFERED FROM BEDSIDE COMMODE TO CHAIR, MINIMAL DYSPNEA NOTED, SMAL LOOSE STOOL TO COMOED
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
--- NOTE | 2016-08-27 14:45 | NUR ---
LEVAQUIN 750 MG IVPB INTITATED AND TESSELON GOKUL GIVEN PO PER MAY ORDER
--- NOTE | 2016-08-27 15:00 | NUR ---
UP IN CHAIR, ORIENTED X4, VSS, DENIES PAIN, NO ACUTE CHANGE FROM PREVIOUS ASSESSMENT, CALL LIGHT IN REACH
--- NOTE | 2016-08-27 16:30 | NUR ---
CLEAN CATCH URINE SPECIMAN COLLECTED AND TUBED TO LAB
[2016-08-27 16:47] LABS: APPEARANCE CLEAR (CLEAR); COLOR YELLOW (YELLOW); LEUKOCYTE ESTERASE NEGATIVE (NEGATIVE); NITRITE NEGATIVE (NEGATIVE); PROTEIN TRACE mg/dL (NEGATIVE)
[2016-08-27 16:48] LABS: BILIRUBIN NEGATIVE (NEGATIVE); GLUCOSE 250 mg/dL (NEGATIVE); KETONE NEGATIVE (NEGATIVE); UROBILINOGEN NORMAL (NORMAL)
[2016-08-27 16:49] LABS: BACTERIA FEW /hpf (NONE SEEN); EPITHELIAL CELLS 0-5 /hpf (0-5); RED CELLS - URINE 0-5 /hpf (0-5); WHITE CELLS - URINE NSEEN /hpf (0-5)
--- NOTE | 2016-08-27 17:23 | NUR ---
RT TO BEDSIDE FOR UPDRAFT, IS AND FLUTTER VALVE
--- NOTE | 2016-08-27 17:50 | NUR ---
DINNER TRAY TO BEDSIDE, INDEPENDENT WITH SET UP AND EATING
--- NOTE | 2016-08-27 18:07 | NUR ---
POST DINNER, TRANSFERRED TO 2121 VIA WHEELCHAIR, AAO, PRIMARY NURSE CALLED TO BEDSIDE, CALL LIGHT IN REACH, VOICES NO NEEDS AT THIS TIME
--- NOTE | 2016-08-27 18:10 | NUR ---
AT CHAIRSIDE, STATUS UPDATED, VOICES NO NEEDS AT THIS TIME
--- NOTE | 2016-08-27 19:50 | NUR ---
SHIFT ASSESSMENT COMPLETE PER FLOWSHEET, SEE FOR DETAILS. UPON ENTERING ROOM PATIENT IS SMILING AND READING A MAGAZINE, SITTING UP IN BED AT A 45 DEGREE ANGLE. STATES HE FEELS MUCH BETTER TODAY. PATIENT IS ALERT AND ORIENTED. STILL TACHYPNIC WITH A RATE OF 27, BUT IN OBVIOUS LESS DISTRESS THAN PRIOR NIGHT. LUNG SOUNDS ARE SHALLOW, NONLABORED, AND EVEN WITH RISE AND FALL. CRACKLES HEARD IN UPPER LOBES BILATERAL. DIMINISHED IN RML,RLL, AND LLL. PATIENT CURRENTLY ON 9L OXYMIZER WITH O2 SAT REMAINIG GREATER THAT 92%. S1S2, NSR ON MONITOR WITH A RATE OF 89. BOWEL SOUNDS ACTIVE X2, DAY SHIFT NURSE REPORTED 2 BM'S TODAY. ABDOMEN IS OBESE, SOFT AND NONTENDER TO PALPATE. USES BEDSIDE URINAL AND DENIES DIFFICULTY URINATING. GENERALIZED EDEMA SEEN IN LOWER EXTREMITIES. ALL PULSES +2 BILTERAL, CAP REFILL LESS THAN 3 SECONDS. KARLI PICC LINE INFUSING NS @ KVO. DRESSING C/D/I AND WITHOUT REDNESS. STILL WEAK IN EXTREMITIES, BUT STRENGTH HAS IMPROVEN FROM LAST NIGHT. VSS, CL IN REACH AND BED LOW. WILL CONTINUE TO MONITOR PATIENT.
--- NOTE | 2016-08-27 20:20 | NUR ---
PATIENT [employer] REQUESTING TO BE REPOSISTIONED. STATES HE IS UNCOMFORTABLE. PLACED ON LEFT SIDE, STATES RELIEF. CL IN REACH
--- NOTE | 2016-08-27 21:37 | NUR ---
PATIENT UP TO BEDSIDE TO USE URINAL. VOIDED 250CC OF HERIBERTO COLORED URNIE.
--- NOTE | 2016-08-27 22:11 | NUR ---
PATIENT UP TO CHAIR PER REQUESTS TO GET COMFORTABLE. TRANSFERRED WITH MINIMAL ASSISST. BECAME A LITTLE SOB WITH EXERTION, OVERALL TOLERATED WELL. VSS.
--- NOTE | 2016-08-27 22:25 | NUR ---
EMPTIED 200CC OUT OF URINAL.
--- NOTE | 2016-08-27 23:05 | NUR ---
SHIFT ASSESSMENT COMPLETE, NO ACUTE CHANGES FROM SHIFT ASSESSMENT. SEE FOR DETAILS. PATIENT CURRENTLY UP IN CHAIR, DENIES PAIN OR DIFFICULTY BREATHING, RR EVEN AND NONLABORED. VSS. WILL MONITOR.
[2016-08-28] VITALS (24 sets, daily range): BP systolic 126–165; BP diastolic 56–89
--- NOTE | 2016-08-28 00:22 | NUR ---
VOIDED 150CC IN URINAL, THEN ASSISSTED BACK TO BED. POSISTIONED FOR COMFORT, TOLERATED MOVE WELL. VSS. CL IN REACH, SIDE RAILS UPX2.
--- NOTE | 2016-08-28 02:00 | NUR ---
PATIENT UP TO BEDSIDE COMMODE. MEDIUM SIZED SOFT BOWEL MOVEMENT AND 200CC OF URINE VOIDED. CLEANED UP AND UP TO CHAIR. CL IN REACH.
--- NOTE | 2016-08-28 03:30 | NUR ---
BATH GIVEN WITH MINIMAL ASSISST, PATIENT SHAVEN, ORAL CARE DONE INDEPENDENTLY. TOLERATED WELL.
--- NOTE | 2016-08-28 04:14 | NUR ---
XRAY IN ROOM.
--- NOTE | 2016-08-28 05:18 | NUR ---
SENIOR ADVISORY AND I BOTH UNSUCCESSFUL WITH LAB DRAW, WILL HAVE ANOTHER PLEBOTOMIST TRY.
--- NOTE | 2016-08-28 05:56 | NUR ---
PATIENT UP TO BEDSIDE COMMODE. VOIDED 250CC OF URINE AND HAD SMALL, SOFT BM. CLEANED UP AND PUT IN BED. SITUATED FOR COMFORT, CL IN REACH.
[2016-08-28 06:14] LABS: BASOPHILS 0.2 % (0-2); EOSINOPHILS 0 % (0-7); HEMATOCRIT 40.8 % (42.0-54.0); HEMOGLOBIN 13.6 g/dL (13.5-17.5); IMMATURE GRANULOCYTES 1.6 % (0-5); LYMPHOCYTES 2.7 % (15-50); MCH 30.6 pg (26.0-34.0); MCHC 33.3 g/dL (31.0-37.0); MCV 91.9 fL (80.0-100.0); MEAN PLATELET VOLUME 9.8 fL (7.4-10.4); MONOCYTES 2.6 % (2-11); NEUTROPHILS 92.9 % (40-80); RBC 4.44 10x6/uL (4.20-6.10); RDW 14.4 % (11.5-14.5); WBC 18.7 10x3/uL (4.8-10.8)
[2016-08-28 06:16] LABS: PLATELET COUNT 336 10x3/uL (130-400)
[2016-08-28 06:26] LABS: ANION GAP 11.5 mmol/L (8-16); CALCIUM 8.5 mg/dL (8.5-10.1); CARBON DIOXIDE 28.4 mmol/L (21.0-32.0); CREATININE - SERUM 1.2 mg/dL (0.6-1.3); POTASSIUM - SERUM 3.9 mmol/L (3.5-5.1)
[2016-08-28 07:15] LABS: PHOSPHOROUS 2.3 mg/dL (2.5-4.9)
--- NOTE | 2016-08-28 07:51 | NUR ---
UP IN BED AWAKE AT THIS TIME READING. NO ACUTE DISTRESS NOTED. DENIES ANY NEEDS. WILL CONTINUE PLAN OF CARE.
--- NOTE | 2016-08-28 08:16 | NUR ---
NOTED PHOSPHORUS LEVEL OF 2.3, PT IS ON ELECTROLYTE PROTOCOL, WILL REPLACE INDICATED BY PROTOCOL GUIDELINES. WILL CONTINUE PLAN OF CARE.
--- NOTE | 2016-08-28 09:06 | NUR ---
AT BEDSIDE, NO ACUTE DISTRESS NOTED. UPDATE GIVEN. WILL CONTINUE PLAN OF CARE.
--- NOTE | 2016-08-28 10:11 | NUR ---
PT UP AT CHAIR BESIDE BED AT THIS TIME READING. VOIDS VIA URINAL. CALL LIGHT IN REACH. ABLE TO STATE NEEDS. NO ACUTE DISTRESS NOTED. WILL CONTINUE PLAN OF CARE.
--- NOTE | 2016-08-28 11:32 | NUR ---
WATCHING TV EATING LUNCH AT THIS TIME. DENIES ANY NEEDS. NO ACUTE DISTRESS NOTED. WILL CONTINUE PLAN OF CARE.
--- NOTE | 2016-08-28 11:40 | NUR ---
NICHOL WATERS BILATERAL KNEE HIGH PLACED AT THIS TIME PER DR BAKER ORDERS.
--- NOTE | 2016-08-28 11:51 | NUR ---
DR CHAUDHRY IN ROOM SPEAKING WITH PT AND PTS . NO ACUTE DISTRESS NOTED. WILL CONTINUE PLAN OF CARE.
--- NOTE | 2016-08-28 14:15 | NUR ---
UP IN CHAIR BESIDE BED WATCHING TV AT THIS TIME. DENIES ANY NEEDS. NO ACUTE DISTRESS NOTED. WILL CONTINUE PLAN OF CARE.
--- NOTE | 2016-08-28 15:14 | NUR ---
RESTING IN BED AT THIS TIME. RESPIRATIONS UNLABORED. PT AWAKENS WHEN STAFF STATES PT NAME. NO ACUTE DISTRESS NOTED. WILL CONTINUE PLAN OF CARE.
--- NOTE | 2016-08-28 16:49 | NUR ---
ASSISTED TO CHAIR BESIDE BED FROM BED VIA STAND BY ASSIST. NO ACUTE DISTRESS NOTED. WILL CONTINUE PLAN OF CARE.
--- NOTE | 2016-08-28 18:38 | NUR ---
UP IN CHAIR BESIDE BED WATCHING TV AT THIS TIME. DENIES ANY NEEDS. NO ACUTE DISTRESS NOTED. LE LIGHT IN REACH. WILL CONTINUE PLAN OF CARE.
--- NOTE | 2016-08-28 19:05 | NUR ---
SHIFT ASSESSMENT COMPLETE, SEE FOR DETAILS. PATIENT CURRENTLY IN THE CHAIR. HE IS ALERT AND ORIENTED X4. NSR ON MONITOR. VSS. DENIES NEED AT THIS TIME. WILL CONTINUE TO MONITOR.
[2016-08-28 19:08] LABS: ACID FAST SMEAR Negative (()); AFB SPECIMEN PROCESSING Concentration (())
--- NOTE | 2016-08-28 21:00 | NUR ---
PATIENT TRANSFERRED TO BED. SITUATED FOR COMFORT. CL IN REACH.
--- NOTE | 2016-08-28 23:00 | NUR ---
REASSESSMENT COMPLETE, NO CHANGES AT THIS TIME. PATIENT RESTING COMFORTABLY. VSS, WILL MONITOR. CL IN REACH.
[2016-08-29] VITALS (22 sets, daily range): BP systolic 128–168; BP diastolic 56–83
--- NOTE | 2016-08-29 00:54 | NUR ---
PATIENT UP TO CHAIR, STATES "I THINK I'LL BE MORE COMFORTABLE IN THE CHAIR". CALL LIGHT AND NECESSITIES IN REACH.
--- NOTE | 2016-08-29 03:00 | NUR ---
REASSESSMENT COMPLETE, NO ACUTE CHANGES. PATIENT STATES HE'S GETTING GOOD REST TONIGHT.
--- NOTE | 2016-08-29 05:00 | NUR ---
DENIES NEED AT THIS TIME. RESTING, WATCHING TV. VSS.
[2016-08-29 05:03] LABS: BASOPHILS 0.1 % (0-2); EOSINOPHILS 0 % (0-7); HEMOGLOBIN 12.5 g/dL (13.5-17.5); IMMATURE GRANULOCYTES 0.8 % (0-5); LYMPHOCYTES 3.9 % (15-50); MCH 29.9 pg (26.0-34.0); MCHC 32.9 g/dL (31.0-37.0); MCV 90.9 fL (80.0-100.0); MEAN PLATELET VOLUME 9.7 fL (7.4-10.4); MONOCYTES 5.8 % (2-11); NEUTROPHILS 89.4 % (40-80); PLATELET COUNT 374 10x3/uL (130-400); RBC 4.18 10x6/uL (4.20-6.10); RDW 14.4 % (11.5-14.5); WBC 19.2 10x3/uL (4.8-10.8)
[2016-08-29 05:32] LABS: CALCIUM 8.1 mg/dL (8.5-10.1); CARBON DIOXIDE 27.7 mmol/L (21.0-32.0); CREATININE - SERUM 1.1 mg/dL (0.6-1.3); MAGNESIUM - SERUM 1.8 mg/dL (1.8-2.4); POTASSIUM - SERUM 3.7 mmol/L (3.5-5.1)
[2016-08-29 05:37] LABS: PHOSPHOROUS 2.9 mg/dL (2.5-4.9)
--- NOTE | 2016-08-29 07:37 | NUR ---
UP IN CHAIR AT THIS TIME EATING BREAKFAST. DENIES ANY NEEDS. NO ACUTE DISTRESS NOTED. WILL CONTINUE PLAN OF CARE.
--- NOTE | 2016-08-29 08:17 | NUR ---
CONTINENT SMALL FORMED BOWEL MOVEMENT NOTED VIA MINIMAL ASSIST. NO ACUTE DISTRESS NOTED. WILL CONTINUE PLAN OF CARE.
--- NOTE | 2016-08-29 09:17 | NUR ---
UP IN CHAIR BESIDE BED AT THIS TIME VISITING WITH . NO ACUTE DISTRESS NOTED. WILL CONTINUE PLAN OF CARE.
--- NOTE | 2016-08-29 11:07 | NUR ---
UP IN CHAIR WATCHING TV AT THIS TIME. NO ACUTE DISTRESS NOTED. WILL CONTINUE PLAN OF CARE.
--- NOTE | 2016-08-29 11:39 | NUR ---
DR MADERA IN ROOM AT THIS TIME SPEAKING WITH PT AND PTS . NO ACUTE DISTRESS NOTED. WILL CONTINUE PLAN OF CARE.
--- NOTE | 2016-08-29 12:33 | NUR ---
CALLED DR TREJO FOR CLARIFICATION FOR ANTIBIOTICS SINCE ANTIBIOTICS ARE DC TODAY FROM THE [facility]. SPOKE WITH DR TREJO SHE STATED THAT IS CORRECT, TODAY MAKES 10 DAYS FOR PT TO RECIEVE THESE ANTIBIOTICS THEREFORE DC IS RIGHT AND SHE WILL SEE PT TOMORROW FOR FURTHER ORDERS. WILL CONTINUE PLAN OF CARE.
--- NOTE | 2016-08-29 14:41 | NUR ---
WATCHING TV IN CHAIR AT THIS TIME. DENIES ANY NEEDS. WILL CONTINUE PLAN OF CARE.
--- NOTE | 2016-08-29 17:56 | NUR ---
NO CHANGE NOTED. NO DISTRESS. UP IN CHAIR BESIDE BED WATCHING TV. DENIES ANY NEEDS. WILL CONTINUE PLAN OF CARE.
--- NOTE | 2016-08-29 18:38 | NUR ---
CALLED DR TREJO TO NOTIFY THAT RESP CULTURE FROM THE FIRST SHOWED 3+ NORMAL RESPIRATORY JANINE INCLUDING YEAST. NO NEW ORDERS RECIEVED. WILL CONTINUE PLAN OF CARE.
--- NOTE | 2016-08-29 19:15 | NUR ---
Received patient sitting n chair at bedside with eyes open, assessment completed per flowsheet. Patient AO x4, calm and cooperative. Eyes PERRLA @ 4mm with brisk response, sclera is white. S1/S2 noted NSR on telemetry with HR 67, rhythmic and regular. Breathing is slightly shallow on 4L via NC, Lung sounds clear bilateral upper with diminished mid and lower. Abdomen is soft and non-tender, bowel sounds active x4. Patient ambulates to bedside commode w/o assistance, no reported difficulty. Full ROM all extremities with all pulses palpable, cap refill <3 sec. L upper arm PICC noted, patent with dressing CDI. Patient denies pain or other needs at this time, all VSS and will continue to monitor.
--- NOTE | 2016-08-29 22:00 | NUR ---
Patient assisted to bed, no difficulties. No further needs and will continue to monitor.
--- NOTE | 2016-08-29 23:15 | NUR ---
Reassessment completed per flowsheet, patient resting in bed with eyes closed. S1/S2 noted NSR on telemetry with HR 62, rhythmic and regular. Breathing is slightly shallow on 4L via NC, O2 sat 97%. Patient denies pain or other needs at this time, all VSS and will continue to monitor.
[2016-08-30] VITALS (8 sets, daily range): BP systolic 151–180; BP diastolic 60–83
--- NOTE | 2016-08-30 03:15 | NUR ---
Reassessment completed per flowsheet, patient sitting up in chair at bedside. S1/S2 noted NSR on telemetry with HR 56, rhythmic and regular. Breathing is slightly shallow on 4L via NC, O2 sat 96%. All pulses palpable with cap refill <3 sec, no further needs at this time. All VSS and will continue to monitor.
[2016-08-30 05:23] LABS: BASOPHILS 0.1 % (0-2); EOSINOPHILS 0 % (0-7); HEMATOCRIT 37.8 % (42.0-54.0); HEMOGLOBIN 12.6 g/dL (13.5-17.5); LYMPHOCYTES 8.1 % (15-50); MCHC 33.3 g/dL (31.0-37.0); MEAN PLATELET VOLUME 9.8 fL (7.4-10.4); MONOCYTES 1.5 % (2-11); NEUTROPHILS 89.3 % (40-80); PLATELET COUNT 376 10x3/uL (130-400); WBC 16.5 10x3/uL (4.8-10.8)
[2016-08-30 05:37] LABS: CALC OSMOLALITY 285 mosm/kg (275-300); CALCIUM 8.1 mg/dL (8.5-10.1); CARBON DIOXIDE 28.2 mmol/L (21.0-32.0); CHLORIDE - SERUM 104 mmol/L (98-107); GLUCOSE 166 mg/dL (74-106); MAGNESIUM - SERUM 1.9 mg/dL (1.8-2.4); PHOSPHOROUS 2.7 mg/dL (2.5-4.9); POTASSIUM - SERUM 4.1 mmol/L (3.5-5.1); SODIUM 140 mmol/L (136-145); UREA NITROGEN 22 mg/dL (7-18); eGFR NON AFRICAN AMERICAN 77 mL/min (90-120)
--- NOTE | 2016-08-30 07:30 | NUR ---
ASSESSMENT COMPLETE. AAO X4. DENIES PAIN. S1S2 NOTED, RADIAL AND PEDAL PULSES PALP. NSR. 4L NC. LUNGS CLEAR, DIMINISHED LOWER LOBES BILAT. ACTIVE BOWEL SOUNDS X4. GOOD APPETITE. TOLERATES MEALS WELL. NO WEAKNESS NOTED. USES URINAL TO VOID. GIACOMO PICC PATENT. FOR OTHER ASSESSMENT FINDINGS SEE FLOWSHEET
--- NOTE | 2016-08-30 08:54 | NUR ---
Nutrition follow-up: Diet: Regular PO intake 100% of most meals Labs reviewed +BM PO intake good at this time. No new wt to assess. RDN following.
--- NOTE | 2016-08-30 09:50 | NUR ---
MEDS GIVEN. PT DID NOT APPEAR TO HAVE DIFFICULTY SWALLOWING. DENIES NEEDS
[2016-08-30 10:10] LABS: ANA REFLEX - DIRECT Negative (Negative); ANTI-GLOMERULAR BASMENT MEMBRN 3 units (0-20)
[2016-08-30 13:13] LABS: FUNGUS STAIN Final report (())
--- NOTE | 2016-08-30 19:00 | NUR ---
PATIENT SITTING UP IN CHAIR. AAOX4. RR EVEN AND UNLABORED. 0 S/S OF DISTRESS. DENIES PAIN AT THIS TIME. O2 @ 3.5L VIA NC. LEFT PICC S/L WITH DRESSING CDI. DENIES NEEDS. CALL LIGHT WITHIN REACH.
--- NOTE | 2016-08-30 22:45 | NUR ---
NIGHTTIME MEDICATIONS ADMINISTERED PER ORDER. HUMALOG HELD FOR BS OF 128.
[2016-08-31] VITALS: BP 172/80
[2016-08-31 03:31] LABS: BASOPHILS 0 % (0-2); EOSINOPHILS 0 % (0-7); HEMATOCRIT 37.2 % (42.0-54.0); HEMOGLOBIN 12.3 g/dL (13.5-17.5); IMMATURE GRANULOCYTES 0.8 % (0-5); LYMPHOCYTES 4.3 % (15-50); MCH 30.1 pg (26.0-34.0); MCHC 33.1 g/dL (31.0-37.0); MCV 91.2 fL (80.0-100.0); MEAN PLATELET VOLUME 9.1 fL (7.4-10.4); MONOCYTES 3.4 % (2-11); NEUTROPHILS 91.5 % (40-80); PLATELET COUNT 442 10x3/uL (130-400); RBC 4.08 10x6/uL (4.20-6.10); RDW 14.1 % (11.5-14.5); WBC 14.6 10x3/uL (4.8-10.8)
[2016-08-31 03:47] LABS: ANION GAP 6.9 mmol/L (8-16); CALCIUM 7.9 mg/dL (8.5-10.1); CARBON DIOXIDE 30.5 mmol/L (21.0-32.0); CREATININE - SERUM 1.1 mg/dL (0.6-1.3); POTASSIUM - SERUM 4.4 mmol/L (3.5-5.1)
[2016-08-31 04:00] VITALS: BP 170/71
[2016-08-31 09:03] VITALS: BP 168/94
--- NOTE | 2016-08-31 09:16 | NUR ---
Received request by Dr Yanez to see if patient needs rehab. CM spoke with patient about his options for rehab and patient would like to go to [facility] In Patient rehab if possible. Referral sent to Rehab
[2016-08-31 12:39] VITALS: BP 160/80
--- NOTE | 2016-08-31 13:45 | NUR ---
Rehab Note- Acute Rehab Prescreen order received. Visited with the patient and his family. They are interested in [facility] IRF, but are awaiting a PT Eval. Will continue to follow the patient at this time. Thank you for this referral! Shamika Watts RN Clinical Liaison, [facility] Rehab/[place]
[2016-08-31 15:10] VITALS: BP 164/75
[2016-08-31 16:13] LABS: ANCA - ANTIMYELOPEROXIDASE <9.0 U/mL (0.0-9.0); ANCA - ANTIPROTEINASE 3 <3.5 U/mL (0.0-3.5); ANCA - ATYPICAL <1:20 titer (Neg:<1:20); ANCA - CYTOPLASMIC <1:20 titer (Neg:<1:20); ANCA - PERINUCLEAR <1:20 titer (Neg:<1:20)
[2016-08-31 20:00] VITALS: BP 162/78
[2016-09-01] VITALS: BP 159/77
[2016-09-01 04:00] VITALS: BP 166/70
[2016-09-01 06:05] LABS: BASOPHILS 0.1 % (0-2); EOSINOPHILS 0.8 % (0-7); HEMATOCRIT 40.8 % (42.0-54.0); HEMOGLOBIN 13.4 g/dL (13.5-17.5); IMMATURE GRANULOCYTES 1.5 % (0-5); LYMPHOCYTES 9.7 % (15-50); MCH 30.5 pg (26.0-34.0); MCHC 32.8 g/dL (31.0-37.0); MCV 92.7 fL (80.0-100.0); MEAN PLATELET VOLUME 9.4 fL (7.4-10.4); MONOCYTES 8.9 % (2-11); RDW 14.4 % (11.5-14.5); WBC 14.6 10x3/uL (4.8-10.8)
[2016-09-01 06:09] LABS: PLATELET COUNT 559 10x3/uL (130-400)
[2016-09-01 06:32] LABS: ANION GAP 10.3 mmol/L (8-16); CALCIUM 8.5 mg/dL (8.5-10.1); CARBON DIOXIDE 29.5 mmol/L (21.0-32.0); CREATININE - SERUM 1.2 mg/dL (0.6-1.3); POTASSIUM - SERUM 3.8 mmol/L (3.5-5.1)
[2016-09-01 08:59] VITALS: BP 182/103
[2016-09-01] MEDS ORDERED: IPRAT-ALBUT 0.5-3 ML UPD (10:27)
[2016-09-01] MEDS ORDERED: CRESTOR10 MG PO (10:28)
[2016-09-01] MEDS ORDERED: BENZONATATE200 MG PO (10:28)
[2016-09-01] MEDS ORDERED: HCTZ25 MG PO (10:28)
[2016-09-01] MEDS ORDERED: MUCINEX600 MG PO (10:28)
[2016-09-01] MEDS ORDERED: PREDNISONE20 MG PO (10:29)
--- NOTE | 2016-09-01 11:13 | NUR ---
CM met with patient and he now wants to go home and have HH. Rea GONZALEZ (LAYLA signed) set up and Nebulizer set up with Juan Diego at [facility]. CM will continue to assist as needed
[2016-09-01] MEDS ORDERED: STERAPRED 5MG 125 MG PO (13:05)
--- NOTE | 2016-09-01 13:05 | NUR ---
SPOKE WITH SHE SAID THE PREDNISONE IS A 5MG 12 DAY TAPER, NOT 40MG DAILY.
--- NOTE | 2016-09-01 13:09 | NUR ---
CALLED THE PHARMACY HE SAID HE ALREADY HAD TO ORDER CONFIRMED TO 10MG TAPER WITH NURSE PRACTITIONER. SPOKE WITH , SHE STATED "THAT WILL BE FINE."
[2016-09-01 13:22] VITALS: BP 173/75
--- NOTE | 2016-09-01 13:30 | NUR ---
DISCHARGE INSTRUCTIONS COMPLETED WITH PATIENT AND . BOTH DENY QUESTIONS. PATIENT LEFT VIA WHEELCHAIR WITH VOLUNTEER.
--- NOTE | 2016-09-01 14:31 | NUR ---
Pt discharge home today with and daughter to drive home. HH and nebulizer set up, no other needs specified.
== END 2016-09-01 13:49 | disposition home health service (06) | DRG 871 ==
LOC: D.ER 08:46 → D.ICU 08:47 → D.MS 08:47 → D.CVICU 08-26 17:24 → D.MS 08-30 10:56
PROVIDERS: Internal Medicine; Internal Medicine Pulmonary Disease; ADMIT Family Medicine
PROC: 02HV33Z Insertion of Infusion Device into Superior Vena Cava, Percutaneous Approach (ICD-10-PCS; principal; 2016-08-20)
PROC: B548ZZA Ultrasonography of Superior Vena Cava, Guidance (ICD-10-PCS; 2016-08-20)
PROC: 0B948ZX Drainage of Right Upper Lobe Bronchus, Via Natural or Artificial Opening Endoscopic, Diagnostic (ICD-10-PCS; 2016-08-26)
DX: A41.9 Sepsis, unspecified organism (principal); G93.41 Metabolic encephalopathy; J69.0 Pneumonitis due to inhalation of food and vomit; I69.351 Hemiplegia and hemiparesis following cerebral infarction affecting right dominant side; N17.9 Acute kidney failure, unspecified; R09.02 Hypoxemia; I10 Essential (primary) hypertension; I25.10 Atherosclerotic heart disease of native coronary artery without angina pectoris; E78.5 Hyperlipidemia, unspecified; E87.6 Hypokalemia; I69.319 Unspecified symptoms and signs involving cognitive functions following cerebral infarction; F03.90 Unspecified dementia, unspecified severity, without behavioral disturbance, psychotic disturbance, mood disturbance, and anxiety; D50.9 Iron deficiency anemia, unspecified

== ENCOUNTER → 2016-11-25 07:38 | Outpatient (CLI) | payer MEDICARE, BC ==
[2016-08-21 12:13] VITALS: BMI 32.0
[~2016-11-25 07:38] MED LIST changes: +BENZONATATE200 MG PO; +CRESTOR10 MG PO; +HCTZ25 MG PO; +IPRAT-ALBUT 0.5-3 ML UPD; +MUCINEX600 MG PO; +PREDNISONE20 MG PO; +STERAPRED 5MG 125 MG PO; +ZITHROMAX TRI-500 MG PO
== END | disposition home or self-care (01) ==
LOC: D.RT 07:38
DX: Z87.01 Personal history of pneumonia (recurrent) (principal)